=== PATIENT | female | born 1990 | race Caucasian/White ===

== ENCOUNTER → 2017-08-10 | Outpatient (CLI) | payer MEDICAID ==
[~2017-08-10] MED LIST: PRENATAL1 TA1 PO
== END ==
LOC: COL.LAB 13:38
DX: R31.9 Hematuria, unspecified (principal)

== ENCOUNTER → 2017-08-10 | Outpatient (CLI) | payer MEDICAID | LOC: COL.RAD 14:15 | DX: O20.8 Other hemorrhage in early pregnancy (principal); Z3A.09 9 weeks gestation of pregnancy ==

== ENCOUNTER 2018-02-04 03:10 | Observation (INO) | payer MEDICAID ==
[~2018-02-04] VITALS: Ht 160 cm; Wt 80.0 kg
[2018-02-04] VITALS (7 sets, daily range): BP systolic 107–138; BP diastolic 56–78; PULSE 77–102; TEMP 98.4–98.7
[2018-02-04 04:06] LABS: BASO % 0.2 % (0.0-2.0); EOS # 0.1 (0.0-0.7); EOS % 1.5 % (0-4.0); GRAN # 6.3 (1.4-6.5); GRAN % 71.9 % (42.2-75.2); HEMOGLOBIN 10.7 g/dl (12.5-16.0); LYMPH # 1.7 (1.2-3.4); LYMPH % 19.6 % (20.0-51.0); MEAN CELL VOLUME 91 fl (80.0-100.0); MEAN CORPUSCULAR HEMOGLOBIN 31 pg (27.0-31.0); MEAN CORPUSCULAR HGB CONC 34 g/dl (33.0-37.0); MEAN PLATELET VOLUME 10.3 fl (7.4-10.4); MONO # 0.6 (0.1-0.6); MONO % 6.3 % (1.7-9.3); PLATELET COUNT 138 K/mm3 (130-400); RED BLOOD COUNT 3.42 M/mm3 (4.10-5.30)
[2018-02-04 04:07] LABS: HEMATOCRIT 31.1 % (37.0-47.0)
[2018-02-04 05:47] LABS: TRICYCLIC ANTIDEPRESS URINE NEGATIVE
== END 2018-02-04 05:20 | disposition short-term general hospital (02) ==
LOC: LDRO 03:10 → LDR 03:41
PROVIDERS: Obstetrics & Gynecology
DX: O42.913 Preterm premature rupture of membranes, unspecified as to length of time between rupture and onset of labor, third trimester (principal); Z3A.33 33 weeks gestation of pregnancy
CPT/HCPCS: J0702; J2540; J3475; J7120